=== PATIENT | female | born 1980 | race Caucasian/White ===

== ENCOUNTER 2020-02-08 10:36 | Emergency (ER) | payer SELFPAY ==
[2020-02-08 11:20] VITALS: BP 134/98; PULSE 81; RESP 14; TEMP 36.8; O2SAT 99; BMI 25.7
== END 2020-02-08 12:30 | disposition left against medical advice (07) ==
LOC: ER 11:21
PROVIDERS: Emergency Provider Emergency Medicine; PCP Nurse Practitioner Family
DX: Z53.21 Procedure and treatment not carried out due to patient leaving prior to being seen by health care provider (principal)
CPT/HCPCS: 99281

== ENCOUNTER 2021-01-29 14:48 | Outpatient (CLI) | payer OTHER, SELFPAY ==
--- NOTE | 2021-01-29 14:56 | MM_ITS ---
WS: [id number] BILATERAL DIGITAL SCREENING MAMMOGRAPHY WITH CAD CLINICAL INFORMATION: SCREENING HISTORY: Screening mammogram. No current complaints. COMPARISON: None. TECHNIQUE: Bilateral CC and MLO views. FINDINGS: The breasts are composed of heterogeneous fibroglandular density tissue, which can limit the detectio n of small underlying mass lesions. No suspicious mass, asymmetry, calcifications, or architectural d istortion. No evidence of malignancy. MM/[place] [id number] IMPRESSION: BI-RADS: 1-Negative FOLLOW UP: 1 Year Follow-up Recommend return to annual screening mammography.
== END 2021-01-29 14:49 | disposition home or self-care (01) ==
LOC: RADSHAW 14:53
PROVIDERS: PCP Nurse Practitioner Family; Visit Provider Nurse Practitioner Family
DX: Z12.31 Encounter for screening mammogram for malignant neoplasm of breast (principal)
CPT/HCPCS: 77067

== ENCOUNTER 2022-02-10 15:06 | Outpatient (CLI) | payer MEDICAID, SELFPAY ==
--- NOTE | 2022-02-10 15:14 | MM_ITS ---
WS: [id number] BILATERAL 3D TOMOSYNTHESIS DIGITAL SCREENING MAMMOGRAPHY WITH CAD CLINICAL INFORMATION: SCREENING HISTORY: Screening mammogram. No current complaints. COMPARISON: January 29, 2021 TECHNIQUE: Bilateral CC and MLO views. FINDINGS: The breasts are composed of heterogeneous fibroglandular density tissue, which can limit the detectio n of small underlying mass lesions. No suspicious mass, asymmetry, calcifications, or architectural d istortion. No evidence of malignancy. MM/[place] [id number] IMPRESSION: BI-RADS: 1-Negative FOLLOW UP: 1 Year Follow-up Recommend return to annual screening mammography.
== END 2022-02-10 15:07 | disposition home or self-care (01) ==
LOC: RAD 15:10
PROVIDERS: PCP Nurse Practitioner Family; Visit Provider Nurse Practitioner Family
DX: Z12.31 Encounter for screening mammogram for malignant neoplasm of breast (principal)
CPT/HCPCS: 77063; 77067

== ENCOUNTER → 2022-04-25 13:16 | Outpatient (BNVA) | payer MEDICAID, SELFPAY | PROVIDERS: PCP Nurse Practitioner Family; Visit Provider Obstetrics & Gynecology | DX: R87.610 Atypical squamous cells of undetermined significance on cytologic smear of cervix (ASC-US) (principal); R87.810 Cervical high risk human papillomavirus (HPV) DNA test positive | CPT/HCPCS: 88305 ==

== ENCOUNTER 2022-07-03 11:01 | Outpatient (CLI) | payer MEDICAID, SELFPAY ==
--- NOTE | 2022-07-03 11:19 | XR_ITS ---
WS: [id number] Chest 2 views, 07/03/2022 Clinical Data: POST COVID, NOCTURNAL DYSPNEA Comparison: None. Findings: No nodules, masses or effusions are seen. The heart is normal. The pulmonary vascularity is not increased. No pneumonia or pneumothorax is seen. XR/XR chest 2V* [id number] Impression: Negative chest.
== END 2022-07-03 11:02 | disposition home or self-care (01) ==
PROVIDERS: PCP Nurse Practitioner Family; Visit Provider Nurse Practitioner Family
DX: U09.9 Post COVID-19 condition, unspecified (principal); R06.9 Unspecified abnormalities of breathing; I10 Essential (primary) hypertension; E78.5 Hyperlipidemia, unspecified
CPT/HCPCS: 71046

== ENCOUNTER 2023-05-05 08:34 | Outpatient (CLI) | payer MEDICAID, SELFPAY ==
--- NOTE | 2023-05-05 08:38 | MM_ITS ---
WS: [id number] BILATERAL 3D TOMOSYNTHESIS DIGITAL SCREENING MAMMOGRAPHY WITH CAD CLINICAL INFORMATION: SCREENING HISTORY: Screening mammogram. No current complaints. COMPARISON: 2021 TECHNIQUE: Bilateral CC and MLO views. FINDINGS: The breasts are composed of heterogeneous fibroglandular density tissue, which can limit the detectio n of small underlying mass lesions. No suspicious mass, asymmetry, calcifications, or architectural d istortion. No evidence of malignancy. IMPRESSION: MM/[place] [id number] BI-RADS: 1-Negative FOLLOW UP: 1 Year Follow-up Recommend return to annual screening mammography.
== END 2023-05-05 08:35 | disposition home or self-care (01) ==
LOC: RAD 08:35
PROVIDERS: PCP Nurse Practitioner Family; Visit Provider Advanced Practice Midwife
DX: Z12.31 Encounter for screening mammogram for malignant neoplasm of breast (principal)
CPT/HCPCS: 77063; 77067

== ENCOUNTER 2024-05-10 08:16 | Outpatient (CLI) | payer MEDICAID, SELFPAY ==
--- NOTE | 2024-05-10 08:20 | MM_ITS ---
WS: [id number] BILATERAL 3D TOMOSYNTHESIS DIGITAL SCREENING MAMMOGRAPHY WITH CAD CLINICAL INFORMATION: SCREENING HISTORY: Screening mammogram. No current complaints. COMPARISON: 2022 TECHNIQUE: Bilateral CC and MLO views. FINDINGS: The breasts are composed of heterogeneous fibroglandular density tissue, which can limit the detectio n of small underlying mass lesions. No suspicious mass, asymmetry, calcifications, or architectural d istortion. No evidence of malignancy. Stable nodularity RIGHT breast. MM/MM [facility] tomosynthesis [id number] IMPRESSION: DENSITY: The breasts are heterogeneously dense, which may obscure small masses. BI-RADS: 2 - Benign FOLLOW UP: 1 Year Follow-up Recommend return to annual screening mammography.
== END 2024-05-10 08:17 | disposition home or self-care (01) ==
LOC: RAD 08:16
PROVIDERS: PCP Nurse Practitioner Family; Visit Provider Advanced Practice Midwife
DX: Z12.31 Encounter for screening mammogram for malignant neoplasm of breast (principal); R92.333 Mammographic heterogeneous density, bilateral breasts
CPT/HCPCS: 77063; 77067

== ENCOUNTER → 2024-10-10 10:29 | Outpatient (BNVA) | payer MEDICAID, SELFPAY | PROVIDERS: PCP Nurse Practitioner Family; Visit Provider Emergency Medicine | DX: J02.9 Acute pharyngitis, unspecified (principal) | CPT/HCPCS: 87071; 87880 ==

== ENCOUNTER 2024-10-23 19:08 | Emergency (ER) | payer MEDICAID, SELFPAY ==
[2024-10-23 19:15] VITALS: BP 174/114; PULSE 110; RESP 16; TEMP 36.9; O2SAT 100
[2024-10-23 19:26] VITALS: BP 160/107; PULSE 117; RESP 16; O2SAT 100
--- NOTE | 2024-10-23 19:30 | W.ED.HA ---
HPI - Headache General: Chief Complaint: Headache Stated Complaint: Possible Migraine Time Seen by Provider: 10/23/24 19:12 History of Present Illness: 44-year-old female reports about 2-1/2 hours ago she started getting a headache. Within an hour it had peaked. It is mostly in the front. She has photophobia, phonophobia, nausea, vomiting and in general feels uncomfortable. She does have a history of frequent headaches. She is on amitriptyline for migraine prophylaxis. She tried taking ibuprofen but threw it back up. Patient's headaches occur weekly if not daily. Denies any trauma, no neurologic symptoms, no recent infections, no rashes, no fevers. Denies anticoagulation. Associated symptoms: Deny chest pain, fever(s), rash or syncope Related Data Home Medications ?Medication ?Instructions ?Recorded ?Confirmed amitriptyline 10 mg tablet 10 mg PO DAILY 03/12/22 10/10/24 lisinopril 2.5 mg tablet 2.5 mg PO DAILY 03/12/22 10/10/24 Previous Rx's ?Medication ?Instructions ?Recorded amoxicillin 500 mg tablet 1,000 mg (2 x 500 mg) PO BID 10 10/10/24 days #40 tabs ibuprofen 800 mg tablet 800 mg PO Q8H PRN pain #30 tabs 10/10/24 Allergies Allergy/AdvReac Type Severity Reaction Status Date / Time No Known Allergies Allergy Verified 10/23/24 19:17 Review of Systems General: Reports: 10 or more systems reviewed and unremarkable except in HPI and below Const: Denies: fever(s) or chills Card: Denies: chest pain, edema or syncope Resp: Denies: dyspnea or productive cough GI: Denies: abdominal pain Musc: Denies: neck pain, back pain, extremity pain or extremity swelling Skin/Breast: Denies: rash or erythema Neuro: Denies: numbness in extremities, weakness in extremities, lack of coordination or difficulty walking PFSH ED PFSH: Medical History Hypertension Surgical History No pertinent past surgical history Family History Father Hypertension Denies family history of Colon cancer Ovarian cancer Diabetes Heart disease Hypercholesteremia Breast cancer Uterine cancer Stroke Social History Smoking and tobacco/nicotine status: never used tobacco/nicotine Physical Exam Narrative: EXAM NARRATIVE: Alert, uncomfortable. No meningeal signs. Very nauseated. Sensitive to light. Pupils are equal and round. No focal neurologic symptoms. Const: COMMON NORMALS: no limitations, alert and well nourished EXAM LIMITATIONS: no altered mental status HENMT: COMMON NORMALS: normocephalic, atraumatic and external ears normal HEAD & SCALP: normocephalic and atraumatic EXTERNAL EAR: Yes external ears normal MOUTH: no muffled voice Eye: COMMON NORMALS: EOMs intact bilaterally, conjunctivae normal and no scleral icterus CONJUNCTIVA: Yes conjunctivae normal Neck/C-Spine: GENERAL: Yes normal visual inspection and Yes trachea midline Resp: COMMON NORMALS: normal respiratory effort and No use of accessory muscles Cardio: COMMON NORMALS: regular rhythm RATE: tachycardic RHYTHM: regular rhythm Extremity: COMMON NORMALS: normal to inspection Neuro: COMMON NORMALS: moves all extremities, no focal motor deficits and no sensory deficits noted SENSORIUM/ORIENTATION: Yes alert SPEECH: speech normal Psych: COMMON NORMALS: mental status grossly normal, Normal thought process present, cooperative, normal affect and speech normal SPEECH: Yes normal speech THOUGHT PROCESS: Normal thought process present Skin: COMMON NORMALS: no rashes or lesions noted, turgor normal and no jaundice GENERAL SKIN EXAM: no rashes or lesions noted and turgor normal Course Vital Signs: Vital signs: Vital Signs Temperature 98.5 F 10/23/24 19:15 Pulse Rate 117 H 10/23/24 19:26 Respiratory Rate 16 10/23/24 19:26 Blood Pressure 160/107 10/23/24 19:26 Pulse Oximetry 100 10/23/24 19:26 Oxygen Delivery Me thod Room Air 10/23/24 19:26 MDM - Headache Medical Decision Making Differential diagnosis includes migraine, tension headache, less likely subarachnoid/dural venous sinus thrombosis/cerebral ischemia. Patient has had headaches like these many times before. Peaked over 1 hour. No trauma. No red flags on history or exam. We are going to try some Compazine, Zofran, Toradol, diphenhydramine, IV fluids and then try oral Tylenol as a p.o. trial. Update 2030 Patient's headache is almost gone. Nausea resolved. Neuro exam normal. BP still elevated 157/112--Going to give a dose of labetalol. Unclear whether the hypertension cause a headache or vice versa. Or, perhaps she simply has uncontrolled hypertension at baseline and this is incidental. She does take lisinopril at home but it is a small dose. We will have her monitor her blood pressure at home tomorrow when she is feeling better. If it remains elevated, she may need to return or call her doctor. No radiology studies performed this visit Discharge Plan Discharge Patient Disposition: Home Clinical Impression: Accelerated hypertension Acute headache Qualifiers: Headache type: unspecified Intractability: not intractable Qualified Code(s): R51.9 - Headache, unspecified Condition: Stable Prescriptions: No Action amoxicillin 500 mg tablet 1,000 mg PO BID 10 Days Qty: 40 0RF ibuprofen 800 mg tablet 800 mg PO Q8H PRN (Reason: pain) Qty: 30 0RF lisinopril 2.5 mg tablet 2.5 mg PO DAILY amitriptyline 10 mg tablet 10 mg PO DAILY Discharge Orders: Discharge ED (Routine); Ordered 10/23/24 Ordered By: Jv Stokes Referrals: Raeann Vaughn FNP [Primary Care Provider] - Discharge Diet: Advance as tolerated Discharge Activity: Increase activity as tolerated Patient Instructions: Acute Headache (ED), Hypertension (ED) Activity Restrictions/Additional Instructions: Please keep track of your blood pressure. Measure at least twice a day when you are resting and calm. If your blood pressure remains elevated despite taking your lisinopril, please call your doctor. If you have emergency symptoms such as confusion, neurologic changes, seizures, chest pain, shortness of breath, swelling, poor urine output, visual disturbance then please return to the ER. Please read all discharge instructions and abide by recommendations and return precautions. Make an appointment to follow-up with your primary care doctor as directed for follow-up. Return to ER if getting worse or other emergent symptoms. Print Language: Japanese Coding Level of Care Code ED [employer] for [employer]
[2024-10-23] MEDS: ondansetron 2 mg/ML SDV 2 mL 4 MG IVP (19:45)
[2024-10-23] MEDS: sodium chloride 0.9% 1,000 ML 999 ML IV (19:49)
[2024-10-23] MEDS: ketorolac 30 mg/mL INJ 15 MG IVP (19:49)
[2024-10-23] MEDS: diphenhydrAMINE 50 mg/mL SDV 1mL IVP (19:52)
[2024-10-23] MEDS: prochlorperazine 10 mg/2 mL Inj IVP (19:55)
[2024-10-23] MEDS: acetaminophen 500 mg Tablet 1000 MG PO (20:37)
[2024-10-23] MEDS: labetalol 5 mg/mL SDV 20mL 20 MG IVP (20:38)
[2024-10-23 21:22] VITALS: BP 146/95; PULSE 97; RESP 16; O2SAT 100
== END 2024-10-23 21:24 | disposition home or self-care (01) ==
PROVIDERS: Emergency Provider Emergency Medicine; PCP Nurse Practitioner Family
DX: R51.9 Headache, unspecified (principal); I10 Essential (primary) hypertension
CPT/HCPCS: 96374; 96375; 99285; J0780; J1200; J1885; J2405; J3490; J7030; J9999

== ENCOUNTER 2025-06-21 11:31 | Outpatient (CLI) | payer MEDICAID, SELFPAY ==
--- NOTE | 2025-06-21 11:37 | MM_ITS ---
WS: [id number] BILATERAL SCREENING DIGITAL TOMOSYNTHESIS MAMMOGRAM WITH CAD HISTORY: SCREENING MAMMOGRAM COMPARISON: 05/10/2024, 05/05/2023, 01/29/2021 Bilateral CC and MLO views with tomosynthesis and synthetic mammography submitted. Computer aided detection analyzed. Breast composition: The breasts are heterogeneously dense, which may obscure small masses. Increasing asymmetry seen only on the LEFT MLO projection in the superior breast. No additional abnormalities. No grouping of calcifications. MM/MM scr tomosynthesis [id number] IMPRESSION: BI-RADS: 0 - Incomplete: Need additional imaging evaluation FOLLOW UP: Need Additional Imaging LEFT breast: Exaggerated lateral LEFT cc. Spot compression views (lateral CC an d MLO). True ML. Ultrasound to follow if abnormality persists.
== END 2025-06-21 11:32 | disposition home or self-care (01) ==
LOC: RAD 11:33
PROVIDERS: PCP Nurse Practitioner Family; Visit Provider Nurse Practitioner Family
DX: Z12.31 Encounter for screening mammogram for malignant neoplasm of breast (principal); R92.333 Mammographic heterogeneous density, bilateral breasts; N64.89 Other specified disorders of breast
CPT/HCPCS: 77063; 77067

== ENCOUNTER 2025-07-04 08:33 | Outpatient (CLI) | payer MEDICAID, SELFPAY ==
--- NOTE | 2025-07-04 08:41 | MM_ITS ---
WS: [id number] ADDITIONAL VIEWS LEFT MAMMOGRAM WITH DIGITAL BREAST TOMOSYNTHESIS. LEFT breast ultrasound, limited HISTORY: ABNORMAL MAMMO COMPARISON: 06/21/2025, 05/10/2024, 05/05/2023 Spot compression views LEFT breast in CC, MLO projections and true ML submitted with digital breast tomosynthesis and SM. Breast composition: The breasts are heterogeneously dense, which may obscure small masses. Asymmetry persists but becomes less conspicuous in the superior LEFT breast towards the outer quadrant. There is no distortion. The slight increased asymmetry and density will be further evaluated by ultrasound. LEFT breast ultrasound, limited. No shadowing mass identified in the upper outer quadrant LEFT breast. MM/MM diag [facility] tomosynthesis [id number] IMPRESSION: BI-RADS: 2 - Benign FOLLOW UP: 1 Year Follow-up Asymmetry in the upper outer quadrant LEFT breast is normal fibroglandular joleen st tissue.
== END 2025-07-04 08:34 | disposition home or self-care (01) ==
LOC: RAD 08:34
PROVIDERS: PCP Nurse Practitioner Family; Visit Provider Nurse Practitioner Family
DX: R92.8 Other abnormal and inconclusive findings on diagnostic imaging of breast (principal); R92.333 Mammographic heterogeneous density, bilateral breasts; N64.89 Other specified disorders of breast
CPT/HCPCS: 76642; 77061; 77063